=== PATIENT | male | born 1955 | race Caucasian/White ===

== ENCOUNTER 2017-01-26 07:18 | Emergency (ER) | payer BC, OTHER ==
--- NOTE | 2017-01-26 07:38 | C.PDOC ---
History Of Present Illness 61-year-old female, PMHx includes Hypertension, presents to the emergency department with complaints of shoulder pain. Patient states he was working out yesterday, doing arm movements and jumping jacks, during which he pulled his right shoulder. Pain is intermittent in nature, and worse with movement. States he is able to lift his arm slightly; Patient took Tylenol last night with transient relief, resulting in him coming to the ED for evaluation. Denies nausea/vomiting, weakness/numbness, tingling, fevers, chills, chest pain, shortness of breath or any other associated symptoms. No other complaints at this time. PMD Oscar Case MD. Time Seen by Provider: 01/26/17 07:30 Chief Complaint (Nursing): Upper Extremity Problem/Injury History Per: Patient History/Exam Limitations: no limitations Onset/Duration Of Symptoms: Days (1) Current Symptoms Are (Timing): Still Present Past Medical History Reviewed: Historical Data, Nursing Documentation, Vital Signs Vital Signs: Last Vital Signs Temp 99.1 F 01/26/17 07:27 Pulse 71 01/26/17 08:09 Resp 18 01/26/17 08:09 BP 142/75 01/26/17 08:09 Pulse Ox 97 01/26/17 14:06 - Medical History PMH: HTN Family History: States: No Known Family Hx - Social History Hx Alcohol Use: No Hx Substance Use: No - Immunization History Hx Tetanus Toxoid Vaccination: No Hx Influenza Vaccination: Yes (04/2016) Hx Pneumococcal Vaccination: No Review Of Systems Except As Marked, All Systems Reviewed And Found Negative. Constitutional: Negative for: Fever Cardiovascular: Negative for: Chest Pain Respiratory: Negative for: Shortness of Breath Gastrointestinal: Negative for: Nausea, Vomiting Musculoskeletal: Positive for: Shoulder Pain (Right). Negative for: Back Pain Neurological: Negative for: Weakness, Numbness Physical Exam - Physical Exam Appears: Non-toxic, No Acute Distress Skin: Warm, Dry, No Rash Head: Atraumatic, Normacephalic Eye(s): bilateral: Normal Inspection, PERRL Nose: Normal Oral Mucosa: Moist Lips: Normal Appearing Neck: Normal ROM Chest: Symmetrical Cardiovascular: Rhythm Regular, No Murmur Respiratory: Normal Breath Sounds, No Accessory Muscle Use Extremity: Tenderness, Capillary Refill (<2 seconds), No Deformity, No Swelling , Other (Right upper extremity: Tenderness to palpation of anterior/lateral shoulder. FROM of elbow and wrist. Decreased ROM of shoulder, able to lift 45 degrees. ) Pulses: Left Radial: Normal, Right Radial: Normal Neurological/Psych: Oriented x3, Normal Speech, Other (No focal deficit) ED Course And Treatment O2 Sat by Pulse Oximetry: 97 - Other Rad XR SHOULDER X-Ray: Viewed By Me, Read By Radiologist Interpretation: Accession No. : [id number]. Patient Name / ID : STEVE COPE / [id number]. Exam Date : 01/26/2017 07:38:19 ( Approved ). Study Comment : Sex / Age : M / 61Y. Creator : Mariam Weaver V. Dictator : Mariam Weaver V. Park Keeper : Performance Consultant : Mariam Weaver V. Approver2 : Report Date : 01/26/2017 08:52:17. My Comment : . PROCEDURE: Radiographs of the Right Shoulder. HISTORY: injury r/o fracture. COMPARISON: No prior. FINDINGS: BONES: A 3 x 8 mm bone island proximal humeral surgical neck is suggested. There is a thin rim of calcification and/or bone paralleling the superolateral humeral head on the less exaggerated internally rotated view. This is not appreciated on the other images/views. The acromioclavicular joint is narrowed. Trace inferior glenoid rim osseous hypertrophy suggested. No typical appearing fractures or dislocations are suggested. JOINTS: Glenohumeral and acromioclavicular mild osteoarthritis. SOFT TISSUES: Thin rim of calcification and/or bone paralleling the superolateral humeral head as above. OTHER FINDINGS: None. IMPRESSION: No typical fracture or dislocation suggested. Thin rim of calcification and or bone paralleling the superolateral humeral head not reproduced or appreciated on other images. CT right shoulder recommended for further evaluation . Thin rim of calcific bursitis versus thin extensive calcific rotator cuff tendinopathy is another. Artifact is another. An elongated thin chip fracture fragments without gross donor sites are all in the differential Medical Decision Making Medical Decision Making: Impression 61y/o M comes in w/ R shoulder pain that started while working out yesterday Diff Dx (includes but not limited to) Tendon/Muscle Strain vs Tear Plan: * Ibuprofen * X-Ray: R Shoulder * Reassess and Disposition Progress: Patients x-ray is negative, states he feels better after Ibuprofem; On re- evaluation, his shoulder is less tender, and range of motion has improved. Patient will be discharged for outpatient f/u with PMD/clinic. he is agreeable with plan and all questions were answered. Disposition Counseled Patient/Family Regarding: Studies Performed, Diagnosis, Need For Followup - Disposition Referrals: Oscar Case MD [Staff Provider] - Brad Bonilla III, MD [Staff Provider] - Disposition: HOME/ ROUTINE Disposition Time: 14:43 Condition: GOOD Additional Instructions: Ms. Noel, thank you for letting us take care of you today. Your provider was Dr. Riggins. You were treated for Shoulder Strain. The emergency medical care you received today was directed at your acute symptoms. If you were prescribed any medication, please fill it and take as directed. It may take several days for your symptoms to resolve. Return to the Emergency Department if your symptoms worsen, do not improve, or if you have any other problems. Please contact your doctor or call one of the physicians/clinics you have been referred to that are listed on the Patient Visit Information form that is included in your discharge packet. Bring any paperwork you were given at discharge with you along with any medications you are taking to your follow up visit. Our treatment cannot replace ongoing medical care by a primary care provider (PCP) outside of the emergency department. Thank you for allowing the [facility] team to be part of your care today. If you had an X-Ray or CT scan: A Radiologist will review the ED reading if any change in treatment is needed we will contact you. If you had a blood, urine, or wound culture: It will take several days for the results, if any change in treatment is needed we will contact you. If you had an STI test: It will take 48 hours for the results. Please call after 1 week if you have not heard back. Prescriptions: Ibuprofen [Motrin] 600 mg PO Q6 PRN #30 tab PRN Reason: Pain, Moderate (4-7) Instructions: Rotator Cuff Injury (ED) Forms: General Discharge Instructions, Work Excuse - POA Present On Arrival: None - Clinical Impression Clinical Impression: Shoulder strain - Scribe Statement The provider has reviewed the documentation as recorded by the Scribe (Birgit Abbott)
[2017-01-26 07:45] VITALS: TEMP 99.1
[2017-01-26 08:10] VITALS: BP 142/75; PULSE 71; RESP 18
[2017-01-26 08:13] VITALS: O2SAT 97
--- NOTE | 2017-01-26 08:53 | RAD ---
PROCEDURE: Radiographs of the Right Shoulder HISTORY: injury r/o fracture COMPARISON: No prior. FINDINGS: BONES: A 3 x 8 mm bone island proximal humeral surgical neck is suggested. There is a thin rim of calcification and/or bone paralleling the superolateral humeral head on the less exaggerated internally rotated view. This is not appreciated on the other images/views. The acromioclavicular joint is narrowed. Trace inferior glenoid rim osseous hypertrophy suggested. No typical appearing fractures or dislocations are suggested. JOINTS: Glenohumeral and acromioclavicular mild osteoarthritis. SOFT TISSUES: Thin rim of calcification and/or bone paralleling the superolateral humeral head as above OTHER FINDINGS: None. IMPRESSION: No typical fracture or dislocation suggested. Thin rim of calcification and or bone paralleling the superolateral humeral head not reproduced or appreciated on other images. CT right shoulder recommended for further evaluation . Thin rim of calcific bursitis versus thin extensive calcific rotator cuff tendinopathy is another. Artifact is another. An elongated thin chip fracture fragments without gross donor sites are all in the differential
== END 2017-01-26 08:12 | disposition home or self-care (01) ==
LOC: C.ER 07:18
DX: S46.911A Strain of unspecified muscle, fascia and tendon at shoulder and upper arm level, right arm, initial encounter (principal); X58.XXXA Exposure to other specified factors, initial encounter; Y93.A2 Activity, calisthenics